=== PATIENT | male | born 1960 | race African-American/Black ===

== ENCOUNTER 2016-12-10 10:49 | Emergency (ER) | payer SELFPAY ==
[~2016-12-10] VITALS: Ht 172.7 cm; Wt 61.2 kg
[2016-12-10 11:23] VITALS: BP 141/86
--- NOTE | 2016-12-10 11:46 | RAD ---
Indication dog bite third metatarsal. Injury 3 weeks ago. AP oblique and lateral views of the right hand were obtained. No acute bony finding is seen. There are degenerative changes particularly at the metatarsal phalangeal joint of the third digit. IMPRESSION::: No acute bony finding
[2016-12-10] MEDS ORDERED: DIPHTH,PERTUSS(ACELL),TET TOX 0.5 ML DISP.SYRIN. VAX IM ONE (12:15)
[2016-12-10] MEDS ORDERED: AMOX1TAB61 PO (12:17)
--- NOTE | 2016-12-10 12:17 | PHYS DOC ---
Past Medical History Past Medical History: No Pertinent History Past Surgical History: Other Additional Past Surgical Histo: R THUMB TENDON REPAIR Alcohol Use: Occasionally Drug Use: None Adult General Chief Complaint Chief Complaint: ANIMAL BITE HPI HPI Patient is a 56 year old male who presents with dog bite to the right hand that occurred 2 weeks ago. Patient states he got beat a stray dog and now he has some numbness and tingling to the hand. Review of Systems Review of Systems Constitutional: Denies fever or chills [] Eyes: Denies change in visual acuity, redness, or eye pain [] Musculoskeletal: Denies back pain or joint pain [] Integument: Dog bite to the right hand Neurologic: Denies headache, focal weakness or sensory changes [] Endocrine: Denies polyuria or polydipsia [] Current Medications Current Medications Current Medications Medications (Trade) Dose Ordered Sig/Rodney Start Time Stop Time Status Last Admin Dose Admin Diphtheria/ Tetanus/Acell Pertussis (Boostrix) 0.5 ml ONCE ONCE 12/10/16 12:15 12/10/16 12:16 Allergies Allergies Allergies Coded Allergies Type Severity Reaction Last Updated Verified No Known Drug Allergies 12/10/16 No Physical Exam Physical Exam Constitutional: Well developed, well nourished, no acute distress, non-toxic appearance. [] HENT: Normocephalic, atraumatic, bilateral external ears normal, oropharynx moist, no oral exudates, nose normal. [] Skin: Right hand with a scabbed wound between the middle finger webspace is. No infection to the area. Full range of motion to the right hand and fingers. Adequate radial medial and ulnar sensation to the right fingers. +2 right radial pulse. cap refill less than 2 seconds the right hand. Back: No tenderness, no CVA tenderness. [] Extremities: No tenderness, no cyanosis, no clubbing, ROM intact, no edema. [] Neurologic: Alert and oriented X 3, normal motor function, normal sensory function, no focal deficits noted. [] Psychologic: Affect normal, judgement normal, mood normal. [] Current Patient Data Vital Signs Vital Signs Date Time Temp Pulse Resp B/P (MAP) Pulse Ox O2 Delivery O2 Flow Rate FiO2 12/10/16 11:23 98.5 77 20 100 Room Air 98.5 EKG EKG [] Radiology/Procedures Radiology/Procedures [] Course & Med Decision Making Course & Med Decision Making Pertinent Labs and Imaging studies reviewed. (See chart for details) Patient is in the ED with complains of dog bite to the right hand that occurred 2 weeks ago. Patient was given tetanus, discharged with Augmentin. Right hand x- rays were negative for any acute findings. He was provided orthopedic doctor for follow-up. Dragon Disclaimer Dragon Disclaimer This electronic medical record was generated, in whole or in part, using a voice recognition dictation system. Departure Departure Impression: Primary Impression: Dog bite of right hand Disposition: HOME, SELF-CARE Condition: STABLE Referrals: NO PCP (PCP) ADILSON EID MD follow up with Dr. Eid's office to see a hand surgeon Patient Instructions: Animal Bite, [id number] Additional Instructions: You were seen for a dog bite to the right hand. Keep the area clean and dry. Call Dr. Eid's office and ask to see Dr. Gomez the hand surgeon. Complete your antibiotics. Scripts Amoxicillin/Potassium Clav (AUGMENTIN 875-125 TABLET) 1 Each Tablet 1 TAB PO BID, #20 TAB Prov: ASHLIE CARDENAS APRN 12/10/16 Problem Qualifiers Primary Impression: Dog bite of right hand Encounter type: initial encounter Qualified Codes: S61.451A - Open bite of right hand, initial encounter; W54.0XXA - Bitten by dog, initial encounter ASHLIE CARDENAS APRN Dec 10, 2016 12:17
== END 2016-12-10 12:25 | disposition home or self-care (01) ==
LOC: ER 10:49
DX: S61.451A Open bite of right hand, initial encounter (principal); R20.0 Anesthesia of skin; W54.0XXA Bitten by dog, initial encounter; Y93.89 Activity, other specified; Y99.8 Other external cause status; Y92.89 Other specified places as the place of occurrence of the external cause
CPT/HCPCS: 73130; 90471; 90715; 99284-25